=== PATIENT | male | born 1985 | race Caucasian/White ===

== ENCOUNTER → 2016-08-16 | Outpatient (REF) | payer OTHER | LOC: M LAB REF 17:14 | PROVIDERS: ATTEND Nurse Practitioner Adult Health | DX: R05 Cough (principal) ==

== ENCOUNTER → 2017-06-14 | Outpatient (REF) | payer OTHER | LOC: M LAB REF 17:17 | DX: J47.9 Bronchiectasis, uncomplicated (principal); J45.40 Moderate persistent asthma, uncomplicated; R05 Cough ==

== ENCOUNTER → 2017-12-02 | Outpatient (CLI) | payer BC, OTHER ==
[2017-12-02 12:46] LABS: BASO % 0.6 % (0.0-1.0); EOS # 0.1 10^3/uL (0.0-0.50); EOS % 0.7 % (0.0-3.0); HEMOGLOBIN 15.7 g/dl (13.5-17.5); IMMATURE GRANULOCYTE % 0.4 % (0-3.0); LYMPH # 1.6 10^3/uL (1.5-4.5); MEAN CORPUSCULAR HEMOGLOBIN 27.7 pg (27.0-33.0); MEAN CORPUSCULAR HGB CONC 32.7 g/dl (32.0-36.5); MEAN CORPUSCULAR VOLUME 84.7 fl (80.0-96.0); MONO # 0.6 10^3/uL (0.0-0.8); MONO % 8.3 % (0.0-5.0); NEUTROPHILS # 4.9 10^3/uL (1.8-7.7); PLATELET COUNT, AUTOMATED 246 10^3/uL (150-450); RED BLOOD COUNT 5.67 10^6/uL (4.30-6.10); RED CELL DISTRIBUTION WIDTH 14.3 % (11.5-14.5); WHITE BLOOD COUNT 7.2 10^3/uL (4.0-10.0)
[2017-12-02 13:20] LABS: IMMUNOGLOBULIN E 24.2 IU/ML (<100); IMMUNOGLOBULIN G 1290 MG/DL (681-1648); IMMUNOGLOBULIN M 126 MG/DL (40-230)
[2017-12-07 08:39] LABS: MISCELLANEOUS TEST LAB See Separate Report
[2017-12-09 10:58] LABS: ALPHA 1 ANTITRYPSIN 166 MG/DL
[2017-12-09 10:59] LABS: ASPERGILLUS FUMIGATUS AB Negative; AUREOBASIDIUM PULLULANS Negative; MICROPOLYSPORA FAENI AB Negative
[2017-12-09 11:00] LABS: PIGEON SERUM AB Negative; THERMOACTINOMYCES SACCHARI Negative; THERMOACTINOMYCES VULGARIS Negative
[2017-12-09 11:05] LABS: STREP PNEUMO TYPE 1 >33.8 ug/mL
[2017-12-09 11:06] LABS: STREP PNEUMO TYPE 12F 0.5 Low ug/mL; STREP PNEUMO TYPE 14 1.0 Low ug/mL; STREP PNEUMO TYPE 18C 12.0 ug/mL; STREP PNEUMO TYPE 19A 8.3 ug/mL; STREP PNEUMO TYPE 19F 15.8 ug/mL; STREP PNEUMO TYPE 23F 1.5 ug/mL; STREP PNEUMO TYPE 3 0.7 Low ug/mL; STREP PNEUMO TYPE 4 0.6 Low ug/mL; STREP PNEUMO TYPE 6B 0.6 Low ug/mL; STREP PNEUMO TYPE 7F 1.1 Low ug/mL; STREP PNEUMO TYPE 8 0.5 Low ug/mL; STREP PNEUMO TYPE 9N 2.2 ug/mL
[2017-12-09 11:07] LABS: STREP PNEUMO TYPE 9V 1.2 Low ug/mL
[2017-12-09 11:09] LABS: ANTI TETANUS ANTIBODY 1.78 IU/mL
== END ==
LOC: M SMT 10:19
DX: J45.40 Moderate persistent asthma, uncomplicated (principal); K21.9 Gastro-esophageal reflux disease without esophagitis; J47.9 Bronchiectasis, uncomplicated; R05 Cough
CPT/HCPCS: 82785

== ENCOUNTER → 2017-12-20 | Outpatient (REF) | payer BC, OTHER ==
[2017-12-28 09:35] LABS: CYSTIC FIBROSIS DNA SCREEN SEE SEPARATE REPORT
== END ==
LOC: M LAB REF 17:10
DX: J47.9 Bronchiectasis, uncomplicated (principal)
CPT/HCPCS: 81220

== ENCOUNTER → 2018-06-28 | Outpatient (CLI) | payer BC, OTHER ==
[2018-06-28 13:18] LABS: HEMATOCRIT 51.2 % (42.0-52.0); HEMOGLOBIN 16.4 g/dl (13.5-17.5); MEAN CORPUSCULAR HEMOGLOBIN 27.3 pg (27.0-33.0); MEAN CORPUSCULAR VOLUME 85.3 fl (80.0-96.0); PLATELET COUNT, AUTOMATED 239 10^3/uL (150-450); WHITE BLOOD COUNT 5.9 10^3/uL (4.0-10.0)
[2018-07-06 00:06] LABS: STREP PNEUMO TYPE 1 >43.5 ug/mL (>1.3); STREP PNEUMO TYPE 12F 0.4 ug/mL (>1.3); STREP PNEUMO TYPE 14 0.9 ug/mL (>1.3); STREP PNEUMO TYPE 18C 13.9 ug/mL (>1.3); STREP PNEUMO TYPE 19A 16.5 ug/mL (>1.3); STREP PNEUMO TYPE 19F 25.8 ug/mL (>1.3); STREP PNEUMO TYPE 23F 1.3 ug/mL (>1.3); STREP PNEUMO TYPE 3 6.9 ug/mL (>1.3); STREP PNEUMO TYPE 4 0.5 ug/mL (>1.3); STREP PNEUMO TYPE 7F 0.6 ug/mL (>1.3); STREP PNEUMO TYPE 8 1.6 ug/mL (>1.3); STREP PNEUMO TYPE 9N 3.6 ug/mL (>1.3); STREP PNEUMO TYPE 9V 1.8 ug/mL (>1.3)
== END ==
LOC: M SMT 09:47
PROVIDERS: ATTEND Allergy & Immunology Allergy
DX: J30.1 Allergic rhinitis due to pollen (principal); J30.89 Other allergic rhinitis; K21.9 Gastro-esophageal reflux disease without esophagitis; J45.40 Moderate persistent asthma, uncomplicated

== ENCOUNTER → 2021-11-17 | Outpatient (REF) | payer OTHER | LOC: M LAB REF 17:05 | PROVIDERS: ATTEND Internal Medicine Pulmonary Disease | DX: J47.1 Bronchiectasis with (acute) exacerbation (principal) ==

== ENCOUNTER → 2025-04-29 | Outpatient (CLI) | payer BC, OTHER | LOC: M RAD 10:18 | PROVIDERS: ATTEND Nurse Practitioner Adult Health | DX: J47.9 Bronchiectasis, uncomplicated (principal) ==